=== PATIENT | male | born 1985 | race Caucasian/White ===

== ENCOUNTER 2017-11-04 05:08 | Emergency (ER) | payer OTHER ==
[2017-11-04 05:16] VITALS: BP 152/86
[2017-11-04] MEDS ORDERED: IBUPROFEN 600 MG TABLET PO STA (05:22)
[2017-11-04] MEDS ORDERED: AMOX/CLAV 875 MG/125 MG TABLET PO STA (05:23)
--- NOTE | 2017-11-04 05:32 | ED Physician Documentation ---
PD HPI HEENT - Stated complaint Stated Complaint: R EAR PAIN - Chief complaint Chief Complaint: Heent - History obtained from History obtained from: Patient - History of Present Illness Timing - onset: Today Timing - details: Abrupt onset, Still present Location: Right ear Associated symptoms: Congestion. No: Fever Similar symptoms before: No diagnosis Recently seen: Not recently seen - Additional information Additional information: Patient is a 32 year old male with no significant past medical history who is presenting to the emergency department for right ear pain. Patient states that he had uri symptoms for the past few days and then feels like he developed sinusitis. patient states that he woke up this morning with severe right ear pain and bloody drainage. Review of Systems Constitutional: denies: Fever, Chills Eyes: reports: Reviewed and negative Ears: reports: Ear pain, Drainage/discharge Nose: reports: Rhinorrhea / runny nose, Congestion, Sinus pressure / pain Throat: denies: Sore throat Respiratory: denies: Cough GI: denies: Nausea, Vomiting : reports: Reviewed and negative Skin: reports: Reviewed and negative Musculoskeletal: reports: Reviewed and negative Neurologic: reports: Reviewed and negative Immunocompromised: denies: Immunocompromised PD PAST MEDICAL HISTORY - Past Medical History Past Medical History: No - Past Surgical History Past Surgical History: No - Present Medications Home Medications: Ambulatory Orders Medication Instructions Recorded Confirmed Amox/Clav 875/125 [Augmentin] 1 each PO Q12H #20 tablet 11/04/17 - Allergies Allergies/Adverse Reactions: Allergies Allergy/AdvReac Type Severity Reaction Status Date / Time No Known Drug Allergies Allergy Verified 11/04/17 05:16 - Social History Does the pt smoke?: Yes Smoking Status: Current every day smoker Does the pt drink ETOH?: Yes Does the pt have substance abuse?: No - Immunizations Immunizations are current?: Yes - POLST Patient has POLST: No PD ED PE NORMAL - Vitals Vital signs reviewed: Yes - General General: Alert and oriented X 3 - HEENT HEENT: Atraumatic - Cardiac Cardiac: RRR - Respiratory Respiratory: No respiratory distress - Abdomen Abdomen: Non distended - Derm Derm: Normal color, No rash - Extremities Extremities: No deformity - Neuro Neuro: Alert and oriented X 3, No motor deficit, Normal speech Eye Opening: Spontaneous PD ED PE EXPANDED - HEENT HEENT: R TM red, R TM loss of landmarks, Other (ruptured tm with purulent discharge) Results - Vitals Vitals: Vital Signs - 24 hr 11/04/17 05:15 Temperature 36.5 C Heart Rate 76 Respiratory 16 Rate Blood Pressure 152/86 H O2 Saturation 97 Oxygen O2 Source Room air PD MEDICAL DECISION MAKING - ED course Complexity details: reviewed old records, reviewed results, re-evaluated patient , considered differential, d/w patient ED course: Patient was seen and examined at bedside. Patient was found to have otitis media with ruptured tm. patient was treated with ibuprofen and augmentin. Patient was non toxic appearing and was able to tolerate PO without any difficulty. Patient required no further work up and was stable for discharge with outpatient follow up. Departure - Departure Disposition: 01 Home, Self Care Clinical Impression: Otitis media Condition: Good Instructions: ED Otitis Media Acute Adult Follow-Up: primary,care provider [Other] - Within 1 week Prescriptions: Amox/Clav 875/125 [Augmentin] 1 each PO Q12H #20 tablet Comments: Your symptoms today are being caused by an ear infection. You had your first dose of antibiotics today and you will need to be on them for 10 days. You should take them with yogurt or probiotics. You can take motrin or tylenol as needed for pain. You should follow up with your doctor if your symptoms don't improve. You should avoid swimming and try to keep water out of your ear in the shower. You may return to the emergency department at any time for new, worsening or uncontrollable symptoms.
== END 2017-11-04 05:35 | disposition home or self-care (01) ==
LOC: ED 05:08
DX: H66.91 Otitis media, unspecified, right ear (principal); F17.200 Nicotine dependence, unspecified, uncomplicated
CPT/HCPCS: 99283; A9270